=== PATIENT | female | born 1980 | race African-American/Black ===

== ENCOUNTER 2024-08-24 17:49 | Emergency (ER) | payer MEDICAID ==
[~2024-08-24] VITALS: Ht 167.6 cm; Wt 108.4 kg
[2024-08-24 18:24] VITALS: TEMP 98.6; O2SAT 98
[2024-08-24] MEDS: IBUPROFEN 400MG TABLET PO ONE (23:15)
[2024-08-24] MEDS ORDERED: AMOX1TAB16 MT (23:27)
[2024-08-24 23:41] VITALS: BP 111/68; PULSE 76; RESP 18; O2SAT 99
== END 2024-08-24 23:44 | disposition home or self-care (01) ==
LOC: ER 17:49
DX: B34.9 Viral infection, unspecified (principal)
CPT/HCPCS: 71045; 99283; Z7610

== ENCOUNTER 2024-09-13 16:57 | Emergency (ER) | payer MEDICAID ==
[~2024-09-13] VITALS: Ht 167.6 cm; Wt 107.0 kg
[~2024-09-13 16:57] MED LIST: AMOX1TAB16 MT
[2024-09-13 17:14] VITALS: BP 132/61; PULSE 61; RESP 18; TEMP 97.9; O2SAT 100
[2024-09-13 19:14] LABS: BASOPHILS % 0.4 % (0.0-2.0); EOSINOPHILS % 0.9 % (0.0-5.0); HEMATOCRIT. 37.3 % (36.0-48.0); HEMOGLOBIN. 12.4 g/dL (12.0-16.0); LYMPHOCYTES % 37.7 % (20.0-50.0); MEAN CORPUSCULAR HEMOGLOBIN 28.7 pg (28.0-32.0); MEAN CORPUSCULAR HGB CONC 33.1 g/dL (31.0-37.0); MEAN CORPUSCULAR VOLUME 86.7 fL (81.0-99.0); MEAN PLATELET VOLUME 9.1 fl (7.4-10.4); MONOCYTES % 8.3 % (2.0-8.0); NEUTROPHILS % 52.7 % (40.0-76.0); PLATELET 216 x1000/uL (130-400); RED CELL DISTRIBUTION WIDTH 14.3 % (11.6-14.6); WHITE BLOOD COUNT 6.2 x1000/uL (4.5-11.0)
[2024-09-13 19:19] LABS: CHLORIDE 109 mEq/L (98-107); POTASSIUM 3.9 mEq/L (3.5-5.1); SODIUM 140 mEq/L (136-145)
[2024-09-13 19:20] LABS: CALCIUM 9.2 mg/dL (8.7-10.4); CARBON DIOXIDE 26 mEq/L (21-32)
[2024-09-13 19:25] LABS: GLUCOSE 96 mg/dL (70-105); UREA NITROGEN BLOOD 11 mg/dL (9-23)
[2024-09-13] MEDS ORDERED: PANT20TA17 MT (19:29)
== END 2024-09-13 22:22 | disposition home or self-care (01) ==
LOC: ER 16:57
DX: K92.1 Melena (principal)
CPT/HCPCS: 36415; 80048; 85025; 99283

== ENCOUNTER 2024-10-04 14:09 | Emergency (ER) | payer MEDICAID ==
[~2024-10-04] VITALS: Ht 170.2 cm; Wt 109.0 kg
[~2024-10-04 14:09] MED LIST changes: +PANT20TA17 MT
[2024-10-04 14:12] VITALS: O2SAT 99
[2024-10-04 14:15] VITALS: BP 127/68; PULSE 72; RESP 18; TEMP 98.6; O2SAT 100
[2024-10-04] MEDS: KETOROLAC 30MG/ML VIAL IM ONE (18:24)
[2024-10-04] MEDS: TETANUS, DIPHTHERIA, PERTUSSIS VAC/PF 0.5ML (>10YR OLD) IM ONE (18:25)
== END 2024-10-04 19:12 | disposition home or self-care (01) ==
LOC: ER 14:19
DX: S30.0XXA Contusion of lower back and pelvis, initial encounter (principal); Z98.890 Other specified postprocedural states; X58.XXXA Exposure to other specified factors, initial encounter; Y93.89 Activity, other specified; Y92.89 Other specified places as the place of occurrence of the external cause; Y99.8 Other external cause status
CPT/HCPCS: 99284; 90715; 90471; 96372; J1885

== ENCOUNTER 2024-10-12 07:12 | Emergency (ER) | payer MEDICAID ==
[~2024-10-12] VITALS: Ht 167.6 cm; Wt 108.1 kg
[2024-10-12 07:15] VITALS: O2SAT 100
[2024-10-12 07:17] VITALS: TEMP 98.3; O2SAT 98
[2024-10-12 09:18] VITALS: BP 116/55; PULSE 71; RESP 16
[2024-10-12] MEDS: IBUPROFEN 600MG TABLET PO ONE (09:18)
== END 2024-10-12 10:06 | disposition home or self-care (01) ==
LOC: ER 07:12
DX: M25.561 Pain in right knee (principal); M54.50 Low back pain, unspecified; Z98.890 Other specified postprocedural states
CPT/HCPCS: 73562; 99283

== ENCOUNTER 2024-10-27 18:19 | Emergency (ER) | payer MEDICAID ==
[~2024-10-27] VITALS: Ht 170.2 cm; Wt 105.0 kg
[2024-10-27 18:46] VITALS: BP 121/82; PULSE 69; RESP 18; TEMP 98.3; O2SAT 96
[2024-10-27 22:08] LABS: CLARITY URINE CLOUDY (CLEAR); COLOR URINE YELLOW (YELLOW); GLUCOSE URINE NEGATIVE (NEGATIVE); KETONES URINE TRACE (NEGATIVE); LEUKOCYTE ESTERASE URINE 2+ (NEGATIVE); NITRITE URINE NEGATIVE (NEGATIVE); OCCULT BLOOD URINE 3+ (NEGATIVE); PH URINE 5.5 (4.5-8.0); PROTEIN URINE TRACE (NEGATIVE); SPECIFIC GRAVITY URINE 1.029 (1.005-1.030)
[2024-10-27 22:15] LABS: WBC URINE 25-50 /hpf (0-2)
[2024-10-27 22:16] LABS: BACTERIA URINE 1+; RBC URINE 50-100 /hpf (0-2); SQUAMOUS EPITHELIAL CELL URINE 1+ /lpf (RARE/1+)
[2024-10-27] MEDS ORDERED: NITR-87 MT (23:44)
[2024-10-27] MEDS ORDERED: NAPR-681 MT (23:44)
[2024-10-27] MEDS ORDERED: CEFP200T13 MT (23:45)
== END 2024-10-28 00:27 | disposition home or self-care (01) ==
LOC: ER 18:19
DX: B34.9 Viral infection, unspecified (principal); N39.0 Urinary tract infection, site not specified; Z79.1 Long term (current) use of non-steroidal anti-inflammatories (NSAID); Z98.890 Other specified postprocedural states; Z20.822 Contact with and (suspected) exposure to COVID-19
CPT/HCPCS: 71045; 81003; 87426; 87804; 99284

== ENCOUNTER 2024-12-06 12:07 | Emergency (ER) | payer MEDICAID ==
[~2024-12-06] VITALS: Ht 167.6 cm; Wt 105.0 kg
[~2024-12-06 12:07] MED LIST changes: +CEFP200T13 MT; +NAPR-681 MT
[2024-12-06 12:26] VITALS: TEMP 36.8; O2SAT 100
[2024-12-06 12:57] LABS: BASOPHILS % 0.5 % (0.0-2.0); EOSINOPHILS % 0.5 % (0.0-5.0); HEMATOCRIT. 39.2 % (36.0-48.0); HEMOGLOBIN. 13.2 g/dL (12.0-16.0); LYMPHOCYTES % 29.3 % (20.0-50.0); MEAN CORPUSCULAR HEMOGLOBIN 29.6 pg (28.0-32.0); MEAN CORPUSCULAR HGB CONC 33.8 g/dL (31.0-37.0); MEAN CORPUSCULAR VOLUME 87.5 fL (81.0-99.0); MEAN PLATELET VOLUME 9.3 fl (7.4-10.4); MONOCYTES % 5.2 % (2.0-8.0); NEUTROPHILS % 64.5 % (40.0-76.0); PLATELET 227 x1000/uL (130-400); RED BLOOD CELL COUNT 4.47 mill/uL (4.2-5.4); RED CELL DISTRIBUTION WIDTH 13.6 % (11.6-14.6); WHITE BLOOD COUNT 9.2 x1000/uL (4.5-11.0)
[2024-12-06] MEDS: IBUPROFEN 400MG TABLET PO NR (13:00)
[2024-12-06 13:04] LABS: CHLORIDE 105 mEq/L (98-107); SODIUM 137 mEq/L (136-145)
[2024-12-06 13:05] LABS: CALCIUM 9.1 mg/dL (8.7-10.4); CARBON DIOXIDE 25 mEq/L (21-32); HCG SCREEN NEGATIVE
[2024-12-06 13:10] LABS: CREATININE 1.2 mg/dL (0.6-1.0); GLUCOSE 92 mg/dL (70-105); UREA NITROGEN BLOOD 13 mg/dL (9-23)
[2024-12-06 13:11] LABS: TROPONIN I HIGH SENSITIVITY 12 ng/L (3.0-34)
[2024-12-06 15:13] LABS: TROPONIN I HIGH SENSITIVITY 14 ng/L (3.0-34)
[2024-12-06 15:39] VITALS: BP 138/88; PULSE 82; RESP 18; O2SAT 99
== END 2024-12-06 15:41 | disposition home or self-care (01) ==
LOC: ER 12:07
DX: R07.89 Other chest pain (principal); M25.531 Pain in right wrist; M25.532 Pain in left wrist; M54.9 Dorsalgia, unspecified; Z79.1 Long term (current) use of non-steroidal anti-inflammatories (NSAID); Z87.19 Personal history of other diseases of the digestive system; W18.39XA Other fall on same level, initial encounter; Y93.89 Activity, other specified; Y92.89 Other specified places as the place of occurrence of the external cause; Y99.8 Other external cause status
CPT/HCPCS: 36415; 71045; 80048; 84484; 84703; 85025; 93005; 99285

== ENCOUNTER 2024-12-30 22:28 | Emergency (ER) | payer MEDICAID ==
[~2024-12-30] VITALS: Ht 170.2 cm; Wt 105.0 kg
[2024-12-30 23:04] VITALS: O2SAT 100
[2024-12-31 00:30] LABS: BASOPHILS % 0.5 % (0.0-2.0); EOSINOPHILS % 1.1 % (0.0-5.0); HEMATOCRIT. 39.6 % (36.0-48.0); HEMOGLOBIN. 13.2 g/dL (12.0-16.0); LYMPHOCYTES % 34.7 % (20.0-50.0); MEAN CORPUSCULAR HGB CONC 33.3 g/dL (31.0-37.0); MEAN PLATELET VOLUME 9.3 fl (7.4-10.4); MONOCYTES % 7.1 % (2.0-8.0); NEUTROPHILS % 56.6 % (40.0-76.0); PLATELET 224 x1000/uL (130-400); RED BLOOD CELL COUNT 4.55 mill/uL (4.2-5.4); RED CELL DISTRIBUTION WIDTH 13.1 % (11.6-14.6); WHITE BLOOD COUNT 6.7 x1000/uL (4.5-11.0)
[2024-12-31 00:43] LABS: CALCIUM 9.6 mg/dL (8.7-10.4); CHLORIDE 106 mEq/L (98-107); POTASSIUM 4.2 mEq/L (3.5-5.1); SODIUM 138 mEq/L (136-145)
[2024-12-31 00:44] LABS: CARBON DIOXIDE 26 mEq/L (21-32)
[2024-12-31 00:49] LABS: CREATININE 0.9 mg/dL (0.6-1.0); GLUCOSE 109 mg/dL (70-105); TROPONIN I HIGH SENSITIVITY 8 ng/L (3.0-34); UREA NITROGEN BLOOD 13 mg/dL (9-23)
[2024-12-31 02:01] VITALS: BP 128/82; PULSE 62; RESP 14; TEMP 36.6; O2SAT 99
== END 2024-12-31 02:02 | disposition home or self-care (01) ==
LOC: ER 22:28
DX: R00.2 Palpitations (principal); R07.89 Other chest pain; Z79.1 Long term (current) use of non-steroidal anti-inflammatories (NSAID)
CPT/HCPCS: 36415; 71045; 80048; 84484; 85025; 93005; 99285

== ENCOUNTER 2025-01-12 18:29 | Emergency (ER) | payer MEDICAID ==
[~2025-01-12] VITALS: Ht 167.6 cm; Wt 105.0 kg
[2025-01-12 18:30] VITALS: O2SAT 98
[2025-01-12 18:37] VITALS: BP 120/78; PULSE 96; RESP 18; TEMP 36.7; O2SAT 99
== END 2025-01-12 19:27 | disposition left against medical advice (07) ==
LOC: ER 18:29
DX: R10.9 Unspecified abdominal pain (principal); Z53.21 Procedure and treatment not carried out due to patient leaving prior to being seen by health care provider